=== PATIENT | male | born 1980 | race Caucasian/White ===

== ENCOUNTER 2022-09-25 12:22 | Inpatient (IN) | payer OTHER ==
[~2022-09-25] VITALS: Ht 167.6 cm; Wt 95.8 kg
[2022-09-25 12:58] LABS: BASOPHILS ABSOLUTE AUTO 0.04 K/mm3 (0.00-0.23); BASOPHILS PERCENT AUTO 1 % (0-2); EOSINOPHILS PERCENT AUTO 2 % (0-6); Hematocrit 23.3 % (37.0-53.0); Hemoglobin 7.6 g/dL (13.5-17.5); IMMATURE GRAN ABSOLUTE AUTO 0.02 K/mm3 (0.00-0.10); IMMATURE GRAN PERCENT AUTO 0 % (0-1); LYMPHOCYTES ABSOLUTE AUTO 0.93 K/mm3 (0.84-5.20); LYMPHOCYTES PERCENT AUTO 16 % (21-46); MONOCYTES ABSOLUTE AUTO 0.62 K/mm3 (0.16-1.47); MONOCYTES PERCENT AUTO 11 % (4-13); Mean Corpuscular HGB 27.3 pg (26.0-34.0); Mean Corpuscular HGB Conc 32.6 g/dL (31.5-36.5); Mean Corpuscular Volume 84 fL (80-100); NEUTROPHILS ABSOLUTE AUTO 3.98 K/mm3 (1.96-9.15); NEUTROPHILS PERCENT AUTO 70 % (41-73); Platelet Count 54 K/mm3 (150-400); RDW Coefficient Variation 21.4 % (11.7-14.2); RDW Standard Deviation 65.2 fL (35.1-46.3); Red Blood Cell Count 2.78 M/mm3 (4.30-5.90); White Blood Cell Count 5.69 K/mm3 (4.00-11.30)
[2022-09-25 13:10] LABS: Alanine Aminotransfer (ALT/SGP 52 U/L (12-78); Albumin, Blood 2.5 g/dL (3.4-5.0); Albumin/Globulin Ratio 0.5 (0.8-1.8); Alk Phos 130 U/L (50-136); Anion Gap 1 mmol/L (6-16); Aspartate Aminotrans (AST/SGOT 186 U/L (12-37); Bilirubin, Direct 1.3 mg/dL (0.0-0.3); Bilirubin, Indirect 1.2 mg/dL (0.1-0.7); Bilirubin, Total 2.5 mg/dL (0.1-1.0); Blood Urea Nitrogen 17 mg/dL (8-24); Bun/Creatinine Ratio 21.7 (12.0-20.0); CO2, Blood 26 mmol/L (21-32); Calcium, Blood 8.5 mg/dL (8.5-10.1); Chloride, Blood 109 mmol/L (98-108); Creatinine, Blood 0.78 mg/dL (0.60-1.20); Ethanol (Alcohol), Blood, Med <3 mg/dL; Globulin, Blood 4.8 g/dL (2.2-4.0); Glomerular Filtration Rate 113 (60-); Glucose, Blood 104 mg/dL (70-99); Potassium, Blood 4.3 mmol/L (3.5-5.5); Sodium, Blood 136 mmol/L (136-145); Total Protein, Blood 7.3 g/dL (6.4-8.2)
[2022-09-25 13:17] LABS: Source, Urine Clean Catch
[2022-09-25] MEDS ORDERED: B-1100 M2 PO (13:19)
[2022-09-25] MEDS ORDERED: GABA300 PO (13:19)
[2022-09-25] MEDS ORDERED: FOLI1 PO (13:20)
[2022-09-25] MEDS ORDERED: MULTI-VITAMIN1 EAC2 PO (13:20)
[2022-09-25] MEDS ORDERED: MELATONIN5 M1 PO (13:21)
[2022-09-25] MEDS ORDERED: Ativan1 MG PO (13:23)
[2022-09-25] MEDS ORDERED: Midodrine HCl2.5 MG PO (13:24)
[2022-09-25] MEDS ORDERED: BUSP5 PO (13:25)
[2022-09-25] MEDS ORDERED: PANT40 PO (13:25)
[2022-09-25 13:27] LABS: Bilirubin, Urine Neg (Neg); Blood, Urine 3+ (Neg); Glucose Qualitative, Urine Neg (Neg); Ketones, Urine Neg (Neg); Leukocyte Esterase, Urine 3+ (Neg); Nitrite, Urine Neg (Neg); Protein, Urine 2+ (Neg); Specific Gravity, Urine 1.005 (1.003-1.022); Urobilinogen, Urine 2+ (Normal)
[2022-09-25] MEDS ORDERED: MAGNESIUM OXID500 MG PO (13:27)
[2022-09-25] MEDS ORDERED: ALDACTONE100 MG PO (13:27)
[2022-09-25 13:48] LABS: Appearance, Urine Hazy (Clear); Color, Urine Yellow (P-Yellow)
[2022-09-25 13:50] LABS: Amorphous Light (0-Heavy); Bacteria Many /hpf; Mucus Mod (0-Heavy); Squamous Epithelial Cells Rare /hpf (Few); Transitional Epithelial Cells Rare /hpf (0-Rare); White Blood Cells, Urine TNTC /hpf (0-5)
[2022-09-25] MEDS ORDERED: CITALOPRAM HBR10 MG PO (13:53)
[2022-09-25] MEDS ORDERED: FURO20 PO (13:53)
[2022-09-25 15:28] LABS: International Normalized Ratio 1.42; Prothrombin Time Results 14.6 Sec (9.7-11.5)
[2022-09-25 15:53] LABS: Hematocrit 23.4 % (37.0-53.0); Hemoglobin 7.6 g/dL (13.5-17.5)
--- NOTE | 2022-09-25 17:40 | NUR ---
NURSING PCU DAYSHIFT SUMMARY: Assumed care of pt at approx 1530. Arrived from ER via gurney accompanied by RN. Xfer to unit bed w/staff assist x2. Pt tremulous and weak, restless, visual hallucinations, c/o headache. Anxious, agitated at times punching bed and agressively yelling, current CIWA of 24. Skin is jaundiced with no significant breakdown noted. Tele in place, NSR, hypertensive, no c/o CP/pressure. L/S cta t/o, O2 sat mid to upper 90's on RA, no noted cough. Abd mildly distended, BT+, voiding blood tinged/tea colored urine, c/o buring w/urination. PIV x2, D5 1/2NS infusing at 75mls/hr along w/protonic, sandostatin, thiamine and folic acid as ordered. At approx 1800, pt noted to have increased agression after total of 6mg IV ativan and 50mg librium administered. Code delarosa called, placed in tough cough restraints. PMD notified, xfer to ICU d/o received. Bedside report given to accepting RN, xferred via bed at approx 1810.
--- NOTE | 2022-09-25 19:11 | NUR ---
ASSUMPTION OF CARE PT ARRIVED TO ICU FROM PCU VIA GURNEY, REMAINED IN PCU BED DUE TO PTS AGGRESSIVE BEHAVIOR. 4 POINT LOCKING RESTRAINTS APPLIED DUE TO PTS AGGRESSION TOWARDS STAFF. PT ALERT TO PERSON, NOT FOLLOWING COMMANDS, MUMBLING, HAVING VISUAL AND AUDITORY HALLUCINATIONS c CIWA >30. PRECEDEX GTT INITIATED, TITRATING AT THIS TIME. MEDICATED c 4MG ATIVAN SHORTLY AFTER ARRIVAL TO UNIT, PT CONTINUES TO PULL ON RESTRAINTS. 1:1 SITTER AT BEDSIDE WELL 1:1 RN. REPORT GIVEN TO ONCOMING NURSE.
[2022-09-25 21:38] LABS: Hematocrit 22.6 % (37.0-53.0); Hemoglobin 7.1 g/dL (13.5-17.5)
[2022-09-25 23:35] LABS: Source, Urine Foley catheter
[2022-09-25 23:39] LABS: Appearance, Urine Clear (Clear); Bilirubin, Urine Neg (Neg); Blood, Urine 4+ (Neg); Color, Urine Yellow (P-Yellow); Glucose Qualitative, Urine Neg (Neg); Ketones, Urine Neg (Neg); Leukocyte Esterase, Urine 1+ (Neg); Nitrite, Urine Neg (Neg); Protein, Urine 1+ (Neg); Urobilinogen, Urine 2+ (Normal)
[2022-09-26 00:08] LABS: Bacteria Few /hpf; Squamous Epithelial Cells Few /hpf (Few)
[2022-09-26 05:19] LABS: International Normalized Ratio 1.46
[2022-09-26 05:31] LABS: Albumin, Blood 2.1 g/dL (3.4-5.0); Albumin/Globulin Ratio 0.4 (0.8-1.8); Bilirubin, Total 1.9 mg/dL (0.1-1.0); Bun/Creatinine Ratio 19.4 (12.0-20.0); Calcium, Blood 7.7 mg/dL (8.5-10.1); Creatinine, Blood 0.72 mg/dL (0.60-1.20); Globulin, Blood 4.8 g/dL (2.2-4.0); Magnesium, Blood 1.7 mg/dL (1.6-2.4); Potassium, Blood 4.1 mmol/L (3.5-5.5); Total Protein, Blood 6.9 g/dL (6.4-8.2)
--- NOTE | 2022-09-26 06:39 | NUR ---
SHIFT SUMMERY PT IS SEDATED ON PRECEDEX GTT FOR SEVERE ETOH W/DRAWALS, ATIVAN PRN. HE IS ORIENTED TO NAME ONLY. HE IS JAUNDICE. HE HAS OCTREOTIDE AND PROTONIX GTT INFUSING WELL. HE HAS BEEN COMBATIVE, AGITATED AND VERBALLY ABUSE TO STAFF OVERNIGHT. 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 HE IS ON 2L NC W/OXYGEN SAT 98%.
[2022-09-26 07:32] LABS: Hematocrit 22.3 % (37.0-53.0); Hemoglobin 7.1 g/dL (13.5-17.5)
--- NOTE | 2022-09-26 08:03 | NUR ---
CARE OF PT ASSUMED AT 0700. PT SLEEPING, AWAKENS TO VOICE. CIWA 18. PT ORIENTED ONLY TO SELF. PRECEDEX GTT AT 0.5MCG, PROTONIX AND SANDOSTATIN GTT INFUSING. D5 1/2NS AT 75. PT ABLE TO SAFELY SWALLOW AM MEDS. PT AWAKE AND FOLLOWING COMMANDS. RESTRAINTS REMOVED, STEAM ENGINEER NOTIFIED. PT ON CAMERA. BED ALARM ON. PT APPEARS TO BE ACTIVELY HALLUCINATING, CALM AT THIS TIME, LIBRIUM 100MG GIVEN, PRECEDEX DECREASED TO 0.3MCG.
--- NOTE | 2022-09-26 09:04 | NUR ---
PRECEDEX ON STANDBY FOR BP 84/47 (59).
[2022-09-26 09:32] LABS: Hematocrit 21.8 % (37.0-53.0); Hemoglobin 6.8 g/dL (13.5-17.5)
--- NOTE | 2022-09-26 09:35 | NUR ---
PT WOKE UP, REMAINS VERY CONFUSED BUT CALM AND COOPERATIVE. PT REQUEST I CALL HIS FIANCE BUT CANT REMEMBER HER NAME OR NUMBER. BP IMPROVING.
--- NOTE | 2022-09-26 10:03 | NUR ---
PT BEGAN TO ESCALATE, BECOMING VERY AGITATED. PT CONFUSED, THOUGHT HE WAS IN CARE HOME AND NEEDED TO "BREAK OUT". UNABLE TO RE-ORIENT PT. PT BECAME MORE ANGRY, "WHEN I GET MY F-ING HANDS ON YOU, YOUR GOING TO REGRET IT". PT DID ALLOW ME TO MEDICATE HIM WITH ATIVAN, BUT WAS GROWLING AT ME AND CUSING UNDER HIS BREATH. HE ALSO STATED "IM GOING TO RIP THESE IV'S OUT OF MY ARM". SECURITY CALLED TO ASSIST. TUFF CUFFS PLACED TO WRIST, PT WAS CALM WHILE RESTRAINTS PLACED.
--- NOTE | 2022-09-26 10:31 | NUR ---
PT'S 'S CONTACT INFORMATION OBTAINED FROM [employer], SHE IS LISTED HIS EMERGENCY CONTACT. PT'S CALLED AND UPDATED. THEY RESIDE [facility]. HER NAME IS GISELLA; .
--- NOTE | 2022-09-26 12:37 | NUR ---
DR STONE IN TO SEE PT, FULL UPDATE GIVEN. PT GIVEN ROJAS ALEGRIA.
--- NOTE | 2022-09-26 14:00 | NUR ---
PT WOKE UP FOR ORAL MEDS, ORAL CARE, AND SIPS OF WATER. SHORTLY AFTER CARE PT BECAME SEVERELY AGITATED, THRASHING IN BED, PULLING ON RESTRAINTS, USING PROFANITY, AND MAKING THREATS. PT TO RECEIVE ONE UNIT PRBC. ATIVAN 4MG GIVEN, PT CONTINUED TO THRASH, PULLING ON RESTRAINTS. PRECEDEX INCREASED TO 0.5MCG.
[2022-09-26 14:08] LABS: Hematocrit 21.3 % (37.0-53.0); Hemoglobin 6.7 g/dL (13.5-17.5)
--- NOTE | 2022-09-26 18:19 | NUR ---
PT TOLERTATED PBRC'S W/O ANY ADVERSE REACTIONS. PRECEDEX AT 0.5MCG. PT REQUIRED ATIVAN 4MG X 2 THIS SHIFT FOR CIWA >20. SANDOSTATIN AND PROTONIX GTT INFUSING. NO SIGNS OF ACTIVE BLEEDING NOTED, LABS ORDERED FOR AM. PT'S UPDATED AGAIN THIS EVENING. PT SLEEPING AT THIS TIME.
[2022-09-27 04:23] LABS: Hematocrit 24.8 % (37.0-53.0); Hemoglobin 7.9 g/dL (13.5-17.5); Mean Corpuscular HGB 27.4 pg (26.0-34.0); Mean Corpuscular HGB Conc 31.9 g/dL (31.5-36.5); Mean Corpuscular Volume 86 fL (80-100); Mean Platelet Volume 10.9 fL (9.1-12.4); Platelet Count 71 K/mm3 (150-400); RDW Coefficient Variation 21.2 % (11.7-14.2); RDW Standard Deviation 65.7 fL (35.1-46.3); Red Blood Cell Count 2.88 M/mm3 (4.30-5.90); White Blood Cell Count 4.67 K/mm3 (4.00-11.30)
--- NOTE | 2022-09-27 07:43 | NUR ---
CARE OF PT ASSUMED AT 0700. PT SLEEPING, AWAKENS TO VOICE. SPEECH IS GARBLED, SOME OF IT IS INCOMPREHENSIBLE. PRECEDEX AT 1.2MCG FOR ACUTE ETOH W/D. PT YELLS OUT PROFANITIES AT TIMES, GROWLS, PULLS ON RESTRAINTS. PT ORIENTED TO SELF, STATES YEARS IS 7, THEN 9. DOES NOT KNOW WHERE HE IS. WHEN SPEAKING TO PT HE APPEARS ANGRY. PT CALLS OUT FOR "TEX". PRECEDEX DECREASED TO 0.3MCG. WILL OFFER PT WATER AND AM MEDS WHEN MORE AWAKE. SCD'S ON. PROTONIX AND SANDOSTATIN GTT INFUSING. D5 1/2NS AT 75. H&H STABLE, NO SIGNS OF ACTIVE BLEEDING. WILL ASK ABOUT CHECKING CHEM W PHOS/MG THIS AM.
--- NOTE | 2022-09-27 08:27 | NUR ---
PT HAVING SOME MOMENTS OF CLARITY. STATES HE IS HAVING HALLUCINATIONS, C/O CHRONIC BACK PAIN. REQUEST "VALIUM AND PERCOCET". PT CALLING OUT TO PEOPLE WHO ARE NOT HERE. DR STONE CALLED AND UPDATED. PT BOOSTED IN BED. ABLE TO TAKE PO MEDS AND SIPS OF WATER SAFELY.
--- NOTE | 2022-09-27 09:58 | NUR ---
PT INCONTINENT OF X-LARGE LIQUID YELLOW BM. PT CLEANED, GIVEN BED BATH, LINENS CHANGED. 3 ASSIST W BATH D/T CONFUSION. PRECEDEX PLACED ON SB D/T HYPOTENSION, MAPS >65. PT REMAINS CONFUSED, AWAKENS PERIODICALLY. AT TIMES HE IS CALM AND ANGRY, AT OTHER TIMES HE IS AGITATED AND ANGRY.
--- NOTE | 2022-09-27 10:45 | NUR ---
DR STONE IN TO SEE PT. UPDATE GIVEN. AWAITING LAB RESULTS. PT HAS HAD SEVERAL MORE LIQUID BM'S.
[2022-09-27 11:10] LABS: HBSAG SCREEN Negative (Negative); HCV ANTIBODY Non Reactive (Non Reactive); HEP B CORE AB, TOT Negative (Negative)
--- NOTE | 2022-09-27 12:36 | NUR ---
PT SOMNOLENT, AWAKENS PARIODICALLY YELLING OUT AND WITH CARE. PT HAS NOT RECEIVED ATIVAN THIS SHIFT AND PRECEDEX REMAINS ON STANDBY. WHEN PT AWAKENS HE IS CONFUSED, MOST OF HIS CONVERSATION IS INCOMPREHENSIBLE OTHER THAN A FEW PROFANITIES. PT HAS HAD 4 X-LARGE LIQUID YELLOW BM'S. RECTAL TUBE PLACED; PT SAMMI WELL. LAB CALLED REGARDING LAB RESULTS, RP RE-SENT PER LAB. ABLE TO WAKE HIM ENOUGH FOR HIM TO TAKE HIS LACTULOSE. PT QUICKLY FALLS BACK TO SLEEP AFTER SIPS OF WATER W [employer]
[2022-09-27 12:38] LABS: Albumin, Blood 2.3 g/dL (3.4-5.0); Anion Gap 7 mmol/L (6-16); Blood Urea Nitrogen 16 mg/dL (8-24); Bun/Creatinine Ratio 10.9 (12.0-20.0); CO2, Blood 24 mmol/L (21-32); Calcium, Blood 8.1 mg/dL (8.5-10.1); Chloride, Blood 108 mmol/L (98-108); Creatinine, Blood 1.47 mg/dL (0.60-1.20); Glomerular Filtration Rate 60 (60-); Glucose, Blood 103 mg/dL (70-99); Phosphorus, Blood 3.4 mg/dL (2.5-4.9); Potassium, Blood 4.2 mmol/L (3.5-5.5); Sodium, Blood 139 mmol/L (136-145)
--- NOTE | 2022-09-27 14:43 | NUR ---
PT WOKE UP CONFUSED, AGITATED, CIWA >20. 2ND BEDBATH GIVEN FOR INCONTINENCE OF STOOL. LINENS CHANGED. PT MEDICATED W ATIVAN 2MG, PRECEDEX RESTARTED AT 0.2MCG. PT MAKING FIST W VERBAL THREATS. PT MORE CALM NOW, MODERATLY RESTLESS IN BED.
--- NOTE | 2022-09-27 15:50 | NUR ---
DURING BED CHANGE FOR INCONTINENCE OF STOOL PT BECAME SEVERELY AGITATED, PUNCHING W CLOSED FIST TOWARDS STAFF AND YELLING; INCOMPREHENSIBLE OTHER THAN SOME PROFANITY. PT THRASHING IN BED SO HARD THAT BED MOVED W LOCKS ON. ADDITIONAL STAFF AT BEDSIDE TO HELP. ATIVAN 4MG GIVEN DURING INITAL AGITATION, FOLLOWED BY AN ADDITIONAL 4MG WHEN PT TRASHING SO HARD THE BED MOVED. PRECEDEX INCREASED TO 0.4MCG. PT MORE CALM NOW BUT STILL RESTLESS IN BED.
--- NOTE | 2022-09-27 19:00 | NUR ---
ASSUMED CARE ASSUMED CARE OF PATIENT. SEDATED WITH PRECEDEX AT 0.4MCG/KG/HR. ROUSES TO STIMULI, AGITATED WHEN AWAKE. CONFUSED CONVERSATION. ORIENTED TO SELF ONLY AT THIS TIME. REMAINS IN UPPER BUE TATs. SANDOSTATIN AND PROTONIX INFUSING PER ORDER. D51/2NS INFUSING AT 75MLs/HR. MILLER PATENT AND DRAINING TO GRAVITY. RECTAL TUBE PATENT- LIQUID BROWN STOOL. MONITOR SHOWS NSR, RATE 70s. BP STABLE. SEE SHIFT ASSESSMENT FOR FULL ASSESSMENT.
[2022-09-28 03:33] LABS: Hematocrit 25.3 % (37.0-53.0); Hemoglobin 8.2 g/dL (13.5-17.5); Mean Corpuscular HGB 27.9 pg (26.0-34.0); Mean Corpuscular HGB Conc 32.4 g/dL (31.5-36.5); Mean Corpuscular Volume 86 fL (80-100); Platelet Count 77 K/mm3 (150-400); RDW Coefficient Variation 21.5 % (11.7-14.2); RDW Standard Deviation 67.5 fL (35.1-46.3); Red Blood Cell Count 2.94 M/mm3 (4.30-5.90); White Blood Cell Count 4.96 K/mm3 (4.00-11.30)
[2022-09-28 04:25] LABS: Albumin, Blood 2.3 g/dL (3.4-5.0); Anion Gap 8 mmol/L (6-16); Blood Urea Nitrogen 12 mg/dL (8-24); Bun/Creatinine Ratio 14.3 (12.0-20.0); CO2, Blood 20 mmol/L (21-32); Calcium, Blood 7.6 mg/dL (8.5-10.1); Chloride, Blood 114 mmol/L (98-108); Creatinine, Blood 0.84 mg/dL (0.60-1.20); Glomerular Filtration Rate 111 (60-); Glucose, Blood 136 mg/dL (70-99); Phosphorus, Blood 3.1 mg/dL (2.5-4.9); Potassium, Blood 3.6 mmol/L (3.5-5.5); Sodium, Blood 142 mmol/L (136-145)
--- NOTE | 2022-09-28 06:21 | NUR ---
SHIFT SUMMARY NO ACUTE CHANGES. CIWA 16-20. PRECEDEX INFUSING BETWEEN 0.4-0.5MCG/KG/HR- NOW AT 0.5MCG/KG/HR. MEDICATED WITH ATIVAN 2MG IV X 1 AND ATIVAN 4MG IV X 1 DOSE FOR AGITATION. PT ROUSES TO STIMULI. SLOW VERBAL RESPONSE AND OCCASIONAL AGGRESSIVE SPEECH. FOLLOWS SOME COMMANDS. ORIENTED TO SELF ONLY. PUSHED OUT RECTAL TUBE DURING NOC AND NOW STOOL COMSISTENCE SEEMS TOO THICK. INCONTINENT OF LARGE AMOUNT OF LOOSE STOOL. NPO EXCEPT MEDS- PT SWALLOWS WITHOUT DIFFICULTY WHEN ALERT. REPOSITIONS SELF IN BED. REMAINS IN BUE TATs, D/T STRENGTH. DOES PULL ON RESTRAINTS WHEN AGITATED. PROTONIX AND SANDOSTATIN CONTINUE PER ORDER. D51/2NS INFUSING AT 75MLs/HR PER ORDER. WILL REPORT TO ONCOMING RN WHEN AVAILABLE.
--- NOTE | 2022-09-28 09:30 | NUR ---
INITIAL ASSESSMENT PATIENT SLEEPING UPON ENTERING ROOM. PATIENT ORIENTED TO ALL QUESTIONS EXCEPT TOWN AND MONTH. CIWA SCORE OF 9. PATIENT CALM AND COOPERATIVE AT THIS TIME. PATIENT CAN BE UNPREDICTABLE AND AGGRESSIVE AT TIMES PER REPORT. PATIENT AFEBRILE. PATIENT ON 2 L NC TO KEEP SATS 90% AND GREATER. EXPIRATORY WHEEZES NOTED IN UPPER LUNG LOBES. PATIENT IN SR, HR IN THE 60S. SBP 1-TEENS TO 120S. SCDS IN PLACE. PATIENT RECEIVING LACTULOSE. MODERATE ABD DISTENTION NOTED. MILLER DRAINING YELLOW COLORED URINE. SKIN JAUNDICED. SCATTERED SCABS AND BRUISES. PRECEDEX INFUSING AT 0.2 MCG/ KG/ HOUR, PROTONIX AT 10 MLS/ HOUR, OCREOTIDE AT 25 MLS/ HOUR, D5W1/2 NS INFUSING AT 75 MLS/ HOUR. BED LOW, CALL LIGHT IN REACH. WILL CONTINUE TO MONITOR PATIENT FREQUENTLY THROUGHOUT SHIFT.
--- NOTE | 2022-09-28 10:00 | NUR ---
DR. STONE UPDATED ON PATIENT STATUS. INFORMED THAT AMMONIA HAS INCREASED FROM 64 TO 86. NO ORDERS RECEIVED AT THIS TIME.
--- NOTE | 2022-09-28 13:00 | NUR ---
PATIENT AFEBRILE. HR IN THE 60S. SBP 90S TO LOW 100S. PRECEDEX DECREASED TO 0.1 MCG/ KG/ HOUR. CIWA SCORE OF 7. PATIENT REMAINS MOSTLY SLEEPING AND CALM AND COOPERATIVE WHEN AWAKE. NO OTHER ACUTE CHANGES TO NOTE ON AT THIS TIME. WILL CONTINUE TO MONITOR.
--- NOTE | 2022-09-28 16:00 | NUR ---
PATIENT AFEBRILE. HR IN THE 60S. SBP IN THE 1-TEENS. CIWA OF 8. PRECEDEX AT 0.1 MCG/ KG/ HOUR. PATIENT REMAINS CALM AND COOPERATIVE. NO OTHER ACUTE CHANGES TO NOTE ON AT THIS TIME. WILL CONTINUE TO MONITOR.
--- NOTE | 2022-09-28 18:39 | NUR ---
SHIFT SUMMARY PATIENT SLEEPING MOST OF BEGINNING OF SHIFT. PRECEDEX DECREASED FROM 0.5 TO 0.1 MCG/ KG/ HOUR. PATIENT REMAINED MOSTLY ORIENTED AND PERKED UP MORE AT END OF SHIFT. CIWAS RANGED FROM 7 TO 9. PATIENT REMAINED CALM AND COOPERATIVE AND WAS TAKEN OUT OF RESTRAINTS THIS SHIFT. PATIENT HAS REMAINED AFEBRILE. PATIENT HAS BEEN GIVEN FENTANYL TWICE THIS SHIFT FOR COMPLAINTS OF R SHOULDER AND ABD PAIN. PATIENT REMAINED SATTING 90% AND GREATER ON RA. PATIENT REMAINED IN SR, HR 60S TO 90S. SBP 90S TO 130S. PATIENT HAD ONE LARGE, BROWN, LIQUID BM THIS SHIFT. PATIENT CONTINUES TO RECEIVE SCHEDULED LACTULOSE. PATIENT STARTED ON CLEAR DIET THIS SHIFT. PATIENT DENIES NAUSEA BUT DOES NOT HAVE MUCH OF AN APPETITE AT THIS TIME. 700 MLS OF YELLOW COLORED URINE OUT FROM MILLER. NO CHANGES TO SKIN NOTED. PATIENT SHIFTED OWN HIPS FREQUENTLY IN BED. PROTONIX AT 10 MLS/ HOUR, OCREOTIDE AT 25 MLS/ HOUR, D5W1/2NS AT 75 MLS/ HOUR. COMPLETE BED BATH PERFORMED THIS SHIFT. PATIENT'S AND MOTHER CALLED TO CHECK ON HIM. NO COMPLAINTS AT THIS TIME. BED LOW, CALL LIGHT IN REACH. REPORT WILL BE GIVEN TO ASSUMING DIRECTOR OF ACQUISITION MARKETING NURSE SHORTLY.
--- NOTE | 2022-09-29 05:37 | NUR ---
END OF SHIFT SUMMARY PT AWAKE MOST OF THE NIGHT WITH HALLUCINATIONS OF SPIDERS AND THINKING HE DROPPED HIS PILLS IN THE BED. A/O X2 RESP- 2LPM NC WITH SPO2 >93%. LUNG SOUNDS CLEAR BILATERALLY THROUGHOUT. NON PRODUCTIVE COUGH NOTED. CARDIAC- SR WITH SBP 120'S-130'S. HR 80-90'S. GI, - MILLER DRAINING TO GRAVITY WITH DARK YELLOW URINE. PT TAKES PILLS WHOLE WITH WATER WITHOUT DIFFICULTY. PRECEDEX 0.1 MCG/KG/MIN TKO X2 @ 10 MLS/HR D5W 1/2NS AT 75 MLS/HR. LIBRIUM AND ATIVAN GIVEN THIS SHIFT. PT REQUESTS PAIN MEDICATIONS EVERY [address] BRAXTON CAME IN THE MIDDLE OF SHIFT AND ORDERED MEDICATIONS TO BE PO AND MATCH HOME MEDICATIONS. LACTULOSE TO BE HELD IF DIARRHEA STOOLS. TWO DOSES OF LACTULOSE HELD DUE TO MULTIPLE DIARRHEA EVENTS. WILL CONTINUE TO MONITOR PT UNTIL AM RN IS GIVEN REPORT.
--- NOTE | 2022-09-29 17:33 | NUR ---
SHIFT SUMMARY PT STATUS CHANGED TO PCU THIS SHIFT. CIWA 5-8. PRECEDEX PLACED ON STANDBY THIS AM, LIBRUIM PO GIVEN. PT C/O GENERALIZED PAIN, RIGHT SHOULDER AND LUQ WORSE, MEDICATED c OXYCODONE. A&OX 3. FOLLOWS COMMANDS. COOPERATIVE c CARE. ONE PERSON ASSIST TO CHAIR, TOLERATED WELL. MILLER REMOVED. ONE LARGE LIQUID BM THIS SHIFT, HELD LACTULOSE PER DR BRAXTON, REQUESTING STOOL BE SOFT BUT NOT LIQUID OR FORMED. ADVANCED DIET, TOLERATED FULL LIQUID. WILL CONTINUE TO MONITOR UNTIL REPORT TO ONCOMING NURSE.
--- NOTE | 2022-09-30 00:13 | NUR ---
ASSUMED CARE OF PT AT 1900 PT SLEEPING IN BED. CALL LIGHT WITHIN REACH, BED IN LOW POSITION. VITALS WNL AT THIS TIME. PT ON RA WITH SPO2 >93%. ANGELA JUNIOR'Justo DURING DAYSHFIT AT APPROX 1500. NO URINE OUT SINCE THEN. WILL CONTINUE TO MONITOR. PT ABLE TO MAKE NEEDS KNOWN. SEE FULL ASSESSMENT FOR FURTHER DETAILS.
--- NOTE | 2022-09-30 05:47 | NUR ---
END OF SHIFT SUMMARY PT SLEPT MOST OF THE NIGHT WITH INTERMITENT WAKENING FOR PAIN MEDICATIONS AND SELF REPOSITIONING. PT HAS BEEN USING INCENTIVE SPIROMETER THROUGHOUT THE NIGHT WELL. A/O X3. DEPTH PERCEPTION IS SHADY AT THIS POINT, HOWEVER PT HAS NOT HAD HALUCINATIONS THIS SHIFT. RESP- PT HAD ONE NEBULIZER TREATMENT EARLY IN THE NIGHT D/T SOB AND WHEEZING. SPO2 >93% ON RA. LUNG SOUNDS CLEAR BILATERALLY THROUGHOUT WITH INTERMITENT WHEEZE BEFORE CLEARING SECRETIONS BY COUGHING HARD. CARDIAC- SR WITH SBP 120'S. WHEN COUGHING HR RAISES TO 120'S-130'S. CAMDEN BEAR DC'Justo ON DAYSHIFT YESTERDAY, PT HAS HAD SMALL URINE OUTPUT OF 250 MLS. PT HAS ALSO NOT HAD ANY INTAKE ALL NIGHT EXCEPT TO TAKE MEDICATIONS. PT WAS EDUCATED ON THE IMPORTANCE OF DRINKING FLUIDS THROUGHOUT THE DAY TO STAY HYDRATED. NO BM THIS SHIFT. INTEG- NO CHANGES THIS SHIFT. TKO AT 10 MLS/HR WILL CONTINUE TO MONITOR UNTIL REPORT GIVEN TO DAYSHIFT RN.
[2022-09-30 06:45] LABS: Hematocrit 29.3 % (37.0-53.0); Hemoglobin 9.1 g/dL (13.5-17.5); Mean Corpuscular HGB 27.7 pg (26.0-34.0); Mean Corpuscular HGB Conc 31.1 g/dL (31.5-36.5); Mean Corpuscular Volume 89 fL (80-100); Mean Platelet Volume 10.4 fL (9.1-12.4); Platelet Count 143 K/mm3 (150-400); Red Blood Cell Count 3.29 M/mm3 (4.30-5.90); White Blood Cell Count 10.61 K/mm3 (4.00-11.30)
[2022-09-30 07:07] LABS: Magnesium, Blood 1.6 mg/dL (1.6-2.4); Percent Saturation 7.7 % (20.0-50.0)
[2022-09-30 07:25] LABS: Albumin, Blood 2.5 g/dL (3.4-5.0); Albumin/Globulin Ratio 0.5 (0.8-1.8); Bilirubin, Total 1.5 mg/dL (0.1-1.0); Bun/Creatinine Ratio 8.2 (12.0-20.0); Creatinine, Blood 0.85 mg/dL (0.60-1.20); Globulin, Blood 4.7 g/dL (2.2-4.0); Phosphorus, Blood 3.3 mg/dL (2.5-4.9); Potassium, Blood 3.3 mmol/L (3.5-5.5); Total Protein, Blood 7.2 g/dL (6.4-8.2)
--- NOTE | 2022-09-30 09:39 | NUR ---
SHIFT ASSESSMENT ASSUMED CARE OF PT @ 0700. PT INTIALLY RESTING COMFORTABLY, WAKES EASILY TO VERBAL STIMULI. SLUGGISH TO RESPOND BUT ANSWERING QUESTIONS APPROPRIATELY. BREAKFAST TRAY PROVIDED, PT TOLERATING LIQUID DIET WELL, WILL ADVANCE DIET TOTDAY. PT DENIES N/V, DOES C/O MODERATE CHRONIC R SHOULDER PAIN. CIWA SCORE OF 3, DID NOT MEDICATE THIS SHIFT PT QUITE DROWSY. WILL GET PT UP WALKING IF POSSIBLE THIS MORNING.
--- NOTE | 2022-09-30 17:30 | NUR ---
ASSUMPTION OF CARE: Patient arrived to PCU 2 via WC and was able to ambulate to the bathroom with a FWW and a gait belt. Patient was able to make it back to the bed. Bed alarm on for safety. Call light in reach, will continue to monitor.
[2022-10-01 05:46] LABS: Hemoglobin 8.7 g/dL (13.5-17.5); Mean Corpuscular HGB 27.2 pg (26.0-34.0); Mean Corpuscular HGB Conc 31.1 g/dL (31.5-36.5); Mean Corpuscular Volume 88 fL (80-100); Platelet Count 139 K/mm3 (150-400); RDW Standard Deviation 70.1 fL (35.1-46.3); White Blood Cell Count 7.83 K/mm3 (4.00-11.30)
--- NOTE | 2022-10-01 05:47 | NUR ---
SHIFT SUMMARY SOMNOLENT T/O SHIFT, ORIENTED TO PERSON, PLACE, AND SITUATION. IMPULSIVE AT TIMES, BED ALARM ON FOR SAFETY. 1P ASSIST TO BSC WITH GB AND FWW. SEVERAL LOOSE BM'S AFTER GIVING LACTULOSE. CIWA <5. TELE ST 100-120, DENIES CHEST PAIN/PRESSURE. SPO2 >92% ON RA. VSS, NO ACUTE CHANGES A
[2022-10-01 06:11] LABS: Albumin, Blood 2.6 g/dL (3.4-5.0); Albumin/Globulin Ratio 0.6 (0.8-1.8); Bilirubin, Total 1.6 mg/dL (0.1-1.0); Calcium, Blood 8.2 mg/dL (8.5-10.1); Creatinine, Blood 0.85 mg/dL (0.60-1.20); Globulin, Blood 4.7 g/dL (2.2-4.0); Potassium, Blood 3.3 mmol/L (3.5-5.5); Total Protein, Blood 7.3 g/dL (6.4-8.2)
--- NOTE | 2022-10-01 08:22 | NUR ---
AM NOTE: PATIENT ALERT AND ORIENTED X3. FORGETFULL AND SLOW TO RESPOND WITH SPEECH AND MOVEMENTS. DENIES N/T. PERRLA. 2 PERSON ASSIST TO BSC. BED ALARM IN PLACE. USING FWW AND GAIT BELT FOR TRANSFERS. VERY SLOW TO MOVE AND SHUFFLING FEET. COMPLAINS OF RIGHT SHOULDER PAIN THIS AM, RELATED TO PREVIOUS INJURY. LIDOCAINE PATCH TO R CM. ON ROOM AIR SATING 93%. DENIES SOB. LUNGS SOUNDING WHEEZY WITH SOME COARSENESS. TELE SHOWING ST WITH HR 110'S. BP STABLE. DENIES CHEST PAIN/PRESSURE/PALPITATIONS. NO EDEMA NOTED. DENIES ABDOMINAL PAIN/NAUSEA. UP TO BSC TO VOID THIS AM, NO BM. LACTULOSE GIVE PER EMAR. TOLERATING FULL LIQUID DIET THIS AM. DENIES MOST AM CARES. CALL LIGHT IN REACH, BED ALARM IN PLACE.
--- NOTE | 2022-10-01 11:56 | NUR ---
MOM APOLONIA CALLED AND THIS RN PROVIDED UPDATE. NO ACUTE CHANGES. OT IN TO WORK WITH PATIENT. SITTING UP IN CHAIR FOR LUNCH AT THIS TIME. PLAN FOR BED BATH POST LUNCH. CHAIR ALARM IN PLACE.
--- NOTE | 2022-10-01 18:10 | NUR ---
SHIFT SUMMARY: NOT ACUTE CHANGES THROUGHOUT SHIFT. PATIENT CONTINUES TO BE DROWSY AND LETHARGIC. PT/OT. VITAL SIGNS STABLE. REMAINS ON ROOM AIR. TELE CONTINUES TO SHOW SR/ST. COMPLAINS OF RIGHT SHOULDER PAIN. MEDICATED PER EMAR. LACTULOSE HELD THIS AFTERNOON AND EVENING DUE TO 3 LIQUID BOWL MOVEMENTS THIS AFTERNOON. BED ALARM AND CHAIR ALARM IN PLACE. UP TO CHAIR FOR MEALS. ADVANCED TO REGULAR DIET AND TOLERATING WELL. WILL CONTINUE TO MONITOR AND REPORT OFF TO ONCOMING RN.
--- NOTE | 2022-10-01 19:30 | NUR ---
PATIENT SLEEPING AWAKENS TO SLIGHT VERBAL STIMULI. A&O X3 AT FIRST THINKING THAT HE WAS IN [place], BUT CORRECTING SELF EASILY. CONTINUES TO C/O RIGHT SHOULDER PAIN. REPOSITIONING SELF IN BED FOR COMFORT. NO OTHER COMPLAINTS AT THIS TIME.
[2022-10-02 04:51] LABS: Hematocrit 26.7 % (37.0-53.0); Hemoglobin 8.5 g/dL (13.5-17.5); Mean Corpuscular HGB 27.6 pg (26.0-34.0); Mean Corpuscular HGB Conc 31.8 g/dL (31.5-36.5); Mean Corpuscular Volume 87 fL (80-100); Mean Platelet Volume 9.5 fL (9.1-12.4); Platelet Count 136 K/mm3 (150-400); RDW Coefficient Variation 21.7 % (11.7-14.2); RDW Standard Deviation 68.6 fL (35.1-46.3); Red Blood Cell Count 3.08 M/mm3 (4.30-5.90); White Blood Cell Count 6.08 K/mm3 (4.00-11.30)
[2022-10-02 05:14] LABS: Albumin, Blood 2.2 g/dL (3.4-5.0); Albumin/Globulin Ratio 0.5 (0.8-1.8); Bilirubin, Total 1.3 mg/dL (0.1-1.0); Bun/Creatinine Ratio 8.4 (12.0-20.0); Calcium, Blood 8.1 mg/dL (8.5-10.1); Creatinine, Blood 0.59 mg/dL (0.60-1.20); Globulin, Blood 4.2 g/dL (2.2-4.0); Potassium, Blood 3.3 mmol/L (3.5-5.5); Total Protein, Blood 6.4 g/dL (6.4-8.2)
--- NOTE | 2022-10-02 06:47 | NUR ---
SUMMARY PATIENT SLEEPING WHEN UNDISTURBED. AWAKENS EASILY TO VERBAL STIMULI. C/O PAIN TO RIGHT SHOULDER THAT APPEARS TO BE GETTING MORE SEVERE NIGHT PROGRESSED, DESPITE BEING MEDICATED WITH OXYCODONE Q6HR. UP TO SIDE OF BED WITH ASSISTANCE DUE TO GENERALIZED WEAKNESS, AND SHOULDER PAIN. CIWA 1-2 T/O NIGHT.
--- NOTE | 2022-10-02 09:41 | NUR ---
Pt is somewhat lethargic now, sitting on side of bed, moving slowly and often closing his eyes during activity. He says that he he needs to sleep. Earlier he was more awake while eating breakfast. His movements were slow and weak, but he was more alert. Demonstrated use of the flutter valve while sitting on side of bed at this time.
--- NOTE | 2022-10-02 10:25 | NUR ---
Pt was instructed to use the flutter valve, and he demonstrated its use. He is more lethargic than he was at breakfast time. Dr. Woods here to see the patient. He was complaining of right shoulder pain, and the doctor examined him for that.
--- NOTE | 2022-10-02 11:03 | NUR ---
Telemetry removed, pt given oral medications at this time. Dr. Woods said she would order a shoulder xray.
--- NOTE | 2022-10-02 12:18 | NUR ---
mid day dose of gabapentin held due to drowsiness/mild lethargy
--- NOTE | 2022-10-02 13:20 | NUR ---
Pt is sleepy after having Xray of shoulders. Awakens easily, states that his pain is reduced to 5/10 in the shoulder and left arm.
--- NOTE | 2022-10-02 14:21 | NUR ---
Pt is still apparently sleeping. Respirations even and unlabored. Appears comfortable. Bed alarm on.
--- NOTE | 2022-10-02 14:39 | NUR ---
Assisted to stand to void.
--- NOTE | 2022-10-02 14:53 | NUR ---
results of shoulder Xray are noted in the record.
--- NOTE | 2022-10-02 15:34 | NUR ---
Telephone report given to Susana nurse receiving the pt to room 344.
--- NOTE | 2022-10-02 16:10 | NUR ---
TRANSFER PT TRANSFERRED FROM PCU 2 AT 1555. A&OX3, COOPERATIVE, SLOW TO RESPOND. TRANSFERRED FROM WHEELCHAIR TO BED SBA. C/O 02/18 PAIN TO R SHOULDER, "FEELS LIKE SOMEONE IS STABBING ME." IV'S PATENT, MARTÍNEZ POWERGLIDE DOES NOT DRAW. PATIENT CURRENTLY RESTING COMFORTABLY IN BED WITH CALL NIGHT IN REACH.
[2022-10-02] MEDS ORDERED: ENULOSE10 GM/156 PO (20:18)
[2022-10-02] MEDS ORDERED: HYDROXYZINE PAM25 MG PO (20:20)
[2022-10-02] MEDS ORDERED: OXYC10TA19 PO (20:21)
[2022-10-02] MEDS ORDERED: Ventolin/Prove6.7 GM INH (20:21)
[2022-10-02] MEDS ORDERED: NICO21TP TOP (20:22)
[2022-10-02] MEDS ORDERED: NICORETTE4 M1 BC (20:23)
[2022-10-03 04:55] LABS: Hematocrit 25.5 % (37.0-53.0); Hemoglobin 8.2 g/dL (13.5-17.5); Mean Corpuscular HGB 27.4 pg (26.0-34.0); Mean Corpuscular HGB Conc 32.2 g/dL (31.5-36.5); Mean Corpuscular Volume 85 fL (80-100); Mean Platelet Volume 10.6 fL (9.1-12.4); Platelet Count 164 K/mm3 (150-400); RDW Standard Deviation 68.2 fL (35.1-46.3); Red Blood Cell Count 2.99 M/mm3 (4.30-5.90); White Blood Cell Count 6.69 K/mm3 (4.00-11.30)
[2022-10-03 05:26] LABS: Albumin, Blood 2.2 g/dL (3.4-5.0); Albumin/Globulin Ratio 0.5 (0.8-1.8); Bilirubin, Total 1.2 mg/dL (0.1-1.0); Bun/Creatinine Ratio 9.6 (12.0-20.0); Calcium, Blood 8.2 mg/dL (8.5-10.1); Creatinine, Blood 0.62 mg/dL (0.60-1.20); Globulin, Blood 4.4 g/dL (2.2-4.0); Potassium, Blood 3.4 mmol/L (3.5-5.5); Total Protein, Blood 6.6 g/dL (6.4-8.2)
--- NOTE | 2022-10-03 05:43 | NUR ---
FREQUENT REQUESTS FOR PAIN MEDS, R SHOULDER PAIN. Q6 OXY 5MG GIVEN Q6. UNSTEADY GAIT, AOX3, AT TIMES FORGETS TO USE CALL LIGHT. BED ALARM ON. EGD PENDING LOC IMPROVEMENT. VSS ON RA. PLEASANT, COOPERATIVE. LAST BM 10/02.
--- NOTE | 2022-10-03 13:59 | NUR ---
PT HAS BECOME MORE ALERT- PT IS MORE AWAKE AND A BIT MORE INTERACTIVE, HE SEEMS TO BE HAVING AUDITORY AND VISUAL HALLUCINATIONS (HE THOUGHT HIS GIRLFRIEND WAS HERE VISITING, THEN SHE SUDDENLY VANISHED). PT BECAME A LITTLE AGGITATED WITH STAFF AND ACTUALLY RAISED HIS FIST AND SHOOK IT AT THE BIOPSYCHOLOGIST. PT WAS ABLE OT BE REDIRECTED. HE SEEMS TO BE A LITTLE MORE CONFRONTATIONAL IN HIS SPEECH, LIKE HE IS TRYING TO GET UPSET OVER WHAT STAFF ARE SAYING TO HIM. FREQUENT REDIRECTION SEEMS TO BE HELPING. PT WAS ASKING FOR AN ALCOHOLIC DRINK.
--- NOTE | 2022-10-03 19:29 | NUR ---
SHIFT SUMMARY- PT HAS BEEN CONFUSED OFF AND ON T/O THE DAY HALLUCINATING THAT HE HAD VISITORS, AT ONE POINT HE WAS UPSET BECAUSE HE KNEW HIS GIRLFRIEND WAS CHEATING ON HIM. THEN TOWARDS THE END OF THE SHIFT HE BECAME UPSET AND READY TO LEAVE, HE WAS CONFUSED NOT KNOWING WHERE HE IS, (HE THOUGHT HE WAS STILL AT REHAB) CALLED DR HARRELL AND RECIEVED AN ORDER FOR 10MG ZYPREXA. PT WAS UNSAFE AND UNABLE TO REDIRECT AT THE TIME. PT SPOUSE CALLED THE HOSPITAL TRYING TO DETERMINE IF THE PT WAS ACTUALLY BEING DISCHARGED. THE PT HAD CALLED AND ASKED HER TO COME AND GET HIM. SHE IS AWARE THE PT IS NOT BEING DISCHARGED TONIGHT. THE PT IS CURRENTLY IN BED SLEEPING. BEDSIDE REPORT COMPLETED WITH NIGHT RN. PT ANSWERED A PHONE CALL AT THE TIME OF REPORT, WITH STAFF ASSISTANCE. THE PT ATTEMPTED TO DIAL A PHONE NUMBER AFTER THE CALL, AND HE BECAME AGGITATED AND TRIED TO BREAK THE PHONE. HE STOPPED THIS BEHAVIOR WHEN STAFF TOLD HIM NOT TO DO THAT. SO SOME MILD AGRESSION BUT REDIRECTABLE. NIGHT RN IS AWARE.
--- NOTE | 2022-10-04 06:46 | NUR ---
END OF SHIFT NURSING REPORT - PM Admitted from [facility] for confusion and hepatic encephalopathy. He is AOX3 during shift, understands reason and purpose for admission. Episodes of impulksive behavior and exiting bed without calling for assistance triggering bed alarm multiple times. Flat mood, without any anger outbust during shift, Medicated x1 with PRN for 7/10 pain to right-shoulder.
--- NOTE | 2022-10-04 16:49 | NUR ---
SHIFT SUMMARY- PT HAS SLEPT THROUGH MOST OF THE SHIFT. WAKING WHEN STAFF ENCOURAGED HIM TO GET UP AND SIT AT THE EOB TO EAT HIS MEALS. THE PT IS CURRENTLY IN THE BATHROOM FOR THE FIRST TIME TODAY. STAFF HAVE TRIED TO ENCOURAGE HIM TO WAKE UP AND GO USE THE RESTROOM, THE PT HAS DECLINED TO USE THE BATHROOM AT ALL THIS SHIFT. WHEN THE PT WOKE TO TAKE HIS THIRD DOSE OF LACTULOSE AND THE PT BECAME UPSET STATING THAT THE STAFF WERE TRYING TO MAKE HIM "CRAP HIS PANTS." THE PT HAS HAD NO OTHER BM'S TODAY. THE PT IS MORE DISORIENTED THIS EVENING, HE HAS A LOW GRADE FEVER. CALLED DR HARRELL AND RECIEVED AN ORDER FOR TYLENOL. PT RECIEVED THAT DOSE THIS EVENING. PT IS CURRENTLY BACK IN BED, CALL LIGHT IN REACH.
--- NOTE | 2022-10-04 18:00 | NUR ---
SPN SHIFT SUMMARY ASSUMED CARE OF PATIENT AT 0645 WITH PRECEPTOR JAMIL PETERSON. SHIFT ASSESSMENT DONE THIS AM, Pt WAS NOT ORIENTED TO PLACE OR SITUATION, Pt WAS ORIENTED TO SELF AND DAY. SKIN WAS WARM DRY AND INTACT, PEDIAL PULSE WAS STRONG, LUNGS WERE CLEAR BILATERALLY. Pt WAS ALERT FOR MEALS STAFF ASSIST TO SIDE OF BED TO EAT. Pt HAS SLEPT THE MAJORITY OF THIS SHIFT. Pt HAS DECLINED TO GET UP AND AMBULATE 2X THIS SHIFT. Pt REPORTED PAIN IN SHOULDER AT 7/10 AT 1255 WAS GIVEN PRN PAIN MEDICATION. Pt UP TO TOILET WITH STAFF ASSISTANCE AT 1645, Pt WAS RUNNING A FEVER AND TYLEOL WAS ORDERED FROM . 500MG TYLENOL WAS GIVEN AT 1700. Pt IS RESTING CALL LIGHT IN REACH.
[2022-10-05 05:29] LABS: Hematocrit 28.2 % (37.0-53.0); Mean Corpuscular HGB 27.5 pg (26.0-34.0); Mean Corpuscular HGB Conc 31.9 g/dL (31.5-36.5); Mean Corpuscular Volume 86 fL (80-100); Platelet Count 215 K/mm3 (150-400); RDW Coefficient Variation 22.3 % (11.7-14.2); RDW Standard Deviation 69.5 fL (35.1-46.3); Red Blood Cell Count 3.27 M/mm3 (4.30-5.90); White Blood Cell Count 7.52 K/mm3 (4.00-11.30)
[2022-10-05 06:11] LABS: Albumin, Blood 2.2 g/dL (3.4-5.0); Albumin/Globulin Ratio 0.5 (0.8-1.8); Bun/Creatinine Ratio 9.4 (12.0-20.0); Calcium, Blood 8.1 mg/dL (8.5-10.1); Creatinine, Blood 0.64 mg/dL (0.60-1.20); Globulin, Blood 4.7 g/dL (2.2-4.0); Potassium, Blood 3.7 mmol/L (3.5-5.5); Total Protein, Blood 6.9 g/dL (6.4-8.2)
--- NOTE | 2022-10-05 06:53 | NUR ---
END OF SHIFT NURSING REPORT - PM Admitted from [facility] for confusion and hepatic encephalopathy. He is AOX3 during shift, understands reason and purpose for admission. X1 Episodes of impulsive behavior and exiting bed without calling for assistance triggering bed alarm. Pleasant mood during shift, and is looking forward to [place] home on Saturday. Thought 10/04/22 was next Saturday to attend daughters birthday. He was re-oriented on date. Medicated x2 with PRN Oxy for 8/10 pain to right-shoulder.
[2022-10-05 11:30] LABS: Source, Urine Clean Catch
[2022-10-05 11:33] LABS: Appearance, Urine Clear (Clear); Bilirubin, Urine Neg (Neg); Blood, Urine Neg (Neg); Color, Urine Yellow (P-Yellow); Glucose Qualitative, Urine Neg (Neg); Ketones, Urine Neg (Neg); Leukocyte Esterase, Urine 1+ (Neg); Nitrite, Urine Neg (Neg); Protein, Urine Neg (Neg); Specific Gravity, Urine 1.015 (1.003-1.022); Urobilinogen, Urine 1+ (Normal)
[2022-10-05 12:02] LABS: Bacteria Few /hpf; Mucus Light (0-Heavy); Red Blood Cells, Urine 0-2 /hpf (0-2); Squamous Epithelial Cells Few /hpf (Few)
--- NOTE | 2022-10-05 18:26 | NUR ---
SHIFT SUMMARY- PT WOKE THIS MORNING TO BE PLEASENT AND MORE ALERT T/O THE ENTIRE SHIFT WHEN COMPARED TO THE TWO PREVIOUS DAYS. PT HAS HAD NO ACUTE CHANGE T/O THE DAY, HE DID HAVE A SHOWER. PT SPOUSE CALLED TO CHECK IN ON HIM TODAY, SHE STATED THE PT IS GOING TO DC TO HIS MOTHERS HOUSE HOWEVER SHE IS GOING TO BE THE ONE TO PICK HIM UP TO TAKE HIM THERE. SHE REQUESTED HER NUMBER BE REMOVED FROM THE BOARD YESTERDAY BECAUSE THE PT WAS CALLING HER CONSTANTLY AND BEING VERY REPETITIVE AND NONSENSICAL. HER NUMBER IS IN THE FRONT OF THE CHART. BLOOD CULTURES COMPLETED TODAY, 2V CHEST XR PT HAS BEEN HAVING FEVERS. STARTED ON PO LEVAQUIN. UA COLLECTED AND SENT FOR CULTURE. PT IS CURRENTLY IN BED, CALL LIGHT IN REACH, HE HAS BEEN INDEPENDENT IN THE [place] TODAY BUT MAY REQUIRE ASSISTANCE T/O THE NIGHT IF HE BECOMES MORE TIRED. WILL CTM AND PASS ON TO NIGHT RN IN BEDSIDE REPORT.
--- NOTE | 2022-10-06 06:00 | NUR ---
END OF SHIFT NURSING REPORT - PM Admitted from [facility] for confusion and hepatic encephalopathy. He is AOX4 during shift, understands reason and purpose for admission, and participating in discharge planing. Plan to dischard to his parents house, will transport. Chronic pain to right shoulder medicated with PRN oxy as ordered, patient states relief. He slept through the night and used call light to use bathroom. He is ambulating independently, with steady gait.
--- NOTE | 2022-10-06 18:10 | NUR ---
SUMMARY- PT IS INDEPENDANT, AMBULATED IN [place] [address] MULT TIMES TODAY, INTERACTING APPROPRIATE WITH STAFF. CHRONIC SHOULDER PAIN IS PARTIALLY RELEIVED, NEVER BELOW A 5/10. CALLED FOR ADDITIONAL DOSE OF OXY TODAY WITH RIELEIF OF 5/10. PT TOLERATING FOOD AND FLUIDS. MONITORING FOR ELEVATED TEMPS FOR 24HRS AND LIKELY DC TOMORROW IF ALL IS WELL. PT CIWAA BELOW 2-3 THIS SHIFT
[2022-10-07 05:43] LABS: BASOPHILS ABSOLUTE AUTO 0.16 K/mm3 (0.00-0.23); BASOPHILS PERCENT AUTO 2 % (0-2); EOSINOPHILS ABSOLUTE AUTO 0.26 K/mm3 (0.00-0.68); EOSINOPHILS PERCENT AUTO 3 % (0-6); Hematocrit 27.4 % (37.0-53.0); Hemoglobin 8.6 g/dL (13.5-17.5); IMMATURE GRAN ABSOLUTE AUTO 0.05 K/mm3 (0.00-0.10); IMMATURE GRAN PERCENT AUTO 1 % (0-1); LYMPHOCYTES ABSOLUTE AUTO 2.09 K/mm3 (0.84-5.20); LYMPHOCYTES PERCENT AUTO 22 % (21-46); MONOCYTES ABSOLUTE AUTO 1.34 K/mm3 (0.16-1.47); MONOCYTES PERCENT AUTO 14 % (4-13); Mean Corpuscular HGB 27.2 pg (26.0-34.0); Mean Corpuscular HGB Conc 31.4 g/dL (31.5-36.5); Mean Corpuscular Volume 87 fL (80-100); Mean Platelet Volume 10.7 fL (9.1-12.4); NEUTROPHILS ABSOLUTE AUTO 5.75 K/mm3 (1.96-9.15); NEUTROPHILS PERCENT AUTO 60 % (41-73); Platelet Count 200 K/mm3 (150-400); RDW Standard Deviation 69.5 fL (35.1-46.3); Red Blood Cell Count 3.16 M/mm3 (4.30-5.90); White Blood Cell Count 9.65 K/mm3 (4.00-11.30)
--- NOTE | 2022-10-07 06:00 | NUR ---
END OF SHIFT NURSING REPORT - PM Admitted from [facility] for confusion and hepatic encephalopathy. He is AOX4 during shift, understands reason and purpose for admission, and participating in discharge planing. Plan to dischard to his parents house, Clary Gibbs) cane in and spent the night. She will be transporting patient to his parentys house upon discharge. Chronic pain to right shoulder medicated with PRN oxy x2 as ordered, patient states relief. Had a fever of 100.7 and medicated with tylernol, recheach in the Am is 98.7. He is ambulating independently, with steady gait. Refused PM ammonia and states hed x-10 episodes of bowel movements.
[2022-10-07 06:16] LABS: Albumin, Blood 2.1 g/dL (3.4-5.0); Albumin/Globulin Ratio 0.4 (0.8-1.8); Bilirubin, Total 1.2 mg/dL (0.1-1.0); Bun/Creatinine Ratio 11.7 (12.0-20.0); Calcium, Blood 8.1 mg/dL (8.5-10.1); Creatinine, Blood 0.68 mg/dL (0.60-1.20); Globulin, Blood 4.8 g/dL (2.2-4.0); Potassium, Blood 3.8 mmol/L (3.5-5.5); Total Protein, Blood 6.9 g/dL (6.4-8.2)
[2022-10-07] MEDS ORDERED: FERSU300 PO (11:50)
[2022-10-07] MEDS ORDERED: ASCO500 PO (11:50)
[2022-10-07] MEDS ORDERED: GUAI600T33 PO (11:51)
[2022-10-07] MEDS ORDERED: LEVO750 PO (11:52)
[2022-10-07] MEDS ORDERED: VISBIOME 112.51 EACH PO (11:52)
[2022-10-07] MEDS ORDERED: METO25ER PO (11:52)
[2022-10-07] MEDS ORDERED: OXAYDO5 M5 PO (11:53)
--- NOTE | 2022-10-07 13:11 | NUR ---
PT DISCHARGED AT 1230 WITH DC INSTRUCTIONS. RX FAXED TO [facility] FOR OXYCODONE. [facility] DRIVING PT HOME TO PARENTS IN [facility]. SENT WITH BELONGINGS. WHEELCHAIR OUTSIDE TO PRIVATE CAR.
== END 2022-10-07 12:31 | disposition home health service (06) | DRG 441 ==
LOC: ER 12:22 → PCU 14:48 → MEDS 14:48 → ICUE 14:48 → PCU 15:47 → ICUE 18:10 → PCU 09-30 17:23 → MEDS 10-02 15:53
PROVIDERS: Internal Medicine; Internal Medicine Gastroenterology; Nurse Practitioner Acute Care; Student in an Organized Health Care Education/Training Program; ADMIT Hospitalist
PROC: 0T9B70Z Drainage of Bladder with Drainage Device, Via Natural or Artificial Opening (ICD-10-PCS; 2022-09-25)
PROC: 30233N1 Transfusion of Nonautologous Red Blood Cells into Peripheral Vein, Percutaneous Approach (ICD-10-PCS; principal; 2022-09-26)
PROC: HZ2ZZZZ Detoxification Services for Substance Abuse Treatment (ICD-10-PCS; 2022-09-26)
DX: K76.82 Hepatic encephalopathy (principal); J69.0 Pneumonitis due to inhalation of food and vomit; K22.6 Gastro-esophageal laceration-hemorrhage syndrome; F10.231 Alcohol dependence with withdrawal delirium; N39.0 Urinary tract infection, site not specified; D62 Acute posthemorrhagic anemia; K70.30 Alcoholic cirrhosis of liver without ascites; F17.210 Nicotine dependence, cigarettes, uncomplicated; E87.6 Hypokalemia; K70.10 Alcoholic hepatitis without ascites; M25.511 Pain in right shoulder; D69.59 Other secondary thrombocytopenia; E66.3 Overweight; B19.20 Unspecified viral hepatitis C without hepatic coma; Z68.33 Body mass index [BMI] 33.0-33.9, adult; Z88.8 Allergy status to other drugs, medicaments and biological substances; Z79.899 Other long term (current) drug therapy
CPT/HCPCS: 36415; 36430; 71046; 73030; 73221; 76700; 80048; 80053; 80069; 80076; 81001; 82140; 82272; 82607; 82728; 82746; 83540; 83550; 83735; 84100; 85014; 85018; 85025; 85027; 85610; 85730; 86317; 86704; 86708; 86803; 86850; 86900; 86901; 86923; 87077; 87086; 87147; 87186; 87340; 93005; 93010; 94640; 94664; 94760; 96365; 96366; 96375; 97116; 97162; 97166; 97530; 97535; 99285-25; A9270; C9113; G0480; J0696; J2060; J2354; J2405; J2916; J3010; J3411; J7042; J7050; P9016

== ENCOUNTER 2023-09-03 16:38 | Emergency (ER) | payer OTHER ==
[~2023-09-03] VITALS: Ht 172.7 cm; Wt 86.2 kg
[~2023-09-03 16:38] MED LIST: ALDACTONE100 MG PO; ASCO500 PO; Ativan1 MG PO; B-1100 M2 PO; BUSP5 PO; CITALOPRAM HBR10 MG PO; ENULOSE10 GM/156 PO; FERSU300 PO; FOLI1 PO; FURO20 PO; GABA300 PO; GUAI600T33 PO; HYDROXYZINE PAM25 MG PO; LEVO750 PO; MAGNESIUM OXID500 MG PO; MELATONIN5 M1 PO; METO25ER PO; MULTI-VITAMIN1 EAC2 PO; Midodrine HCl2.5 MG PO; NICO21TP TOP; NICORETTE4 M1 BC; OXAYDO5 M5 PO; OXYC10TA19 PO; PANT40 PO; VISBIOME 112.51 EACH PO; Ventolin/Prove6.7 GM INH
[2023-09-03 18:10] LABS: BASOPHILS ABSOLUTE AUTO 0.05 K/mm3 (0.00-0.23); BASOPHILS PERCENT AUTO 1 % (0-2); EOSINOPHILS ABSOLUTE AUTO 0.07 K/mm3 (0.00-0.68); EOSINOPHILS PERCENT AUTO 1 % (0-6); Hematocrit 24.8 % (37.0-53.0); Hemoglobin 7.5 g/dL (13.5-17.5); IMMATURE GRAN ABSOLUTE AUTO 0.01 K/mm3 (0.00-0.10); IMMATURE GRAN PERCENT AUTO 0 % (0-1); LYMPHOCYTES ABSOLUTE AUTO 1.56 K/mm3 (0.84-5.20); LYMPHOCYTES PERCENT AUTO 29 % (21-46); MONOCYTES ABSOLUTE AUTO 0.49 K/mm3 (0.16-1.47); MONOCYTES PERCENT AUTO 9 % (4-13); Mean Corpuscular HGB 23.6 pg (26.0-34.0); Mean Corpuscular HGB Conc 30.2 g/dL (31.5-36.5); Mean Corpuscular Volume 78 fL (80-100); NEUTROPHILS ABSOLUTE AUTO 3.13 K/mm3 (1.96-9.15); NEUTROPHILS PERCENT AUTO 59 % (41-73); Platelet Count 95 K/mm3 (150-400); RDW Coefficient Variation 27.9 % (11.7-14.2); RDW Standard Deviation 78.7 fL (35.1-46.3); Red Blood Cell Count 3.18 M/mm3 (4.30-5.90); White Blood Cell Count 5.31 K/mm3 (4.00-11.30)
[2023-09-03 18:27] LABS: Albumin, Blood 1.4 g/dL (3.4-5.0); Albumin/Globulin Ratio 0.3 (0.8-1.8); Bilirubin, Direct 1.4 mg/dL (0.0-0.3); Bilirubin, Indirect 0.8 mg/dL (0.1-0.7); Bilirubin, Total 2.2 mg/dL (0.1-1.0); Bun/Creatinine Ratio 6.5 (12.0-20.0); Calcium, Blood 7.4 mg/dL (8.5-10.1); Creatinine, Blood 0.77 mg/dL (0.60-1.20); Globulin, Blood 5.4 g/dL (2.2-4.0); Potassium, Blood 4.4 mmol/L (3.5-5.5); Total Protein, Blood 6.8 g/dL (6.4-8.2)
[2023-09-03 19:47] LABS: International Normalized Ratio 1.85; Prothrombin Time Results 18.8 Sec (9.7-11.5)
[2023-09-03 20:56] LABS: Automated BF RBC Count 0.006 M/mm3 (0-0); Automated BF WBC Count 0.146 K/mm3 (0-999); Body Fluid WBC Count 146 /mm3 (0-999); RBC Count, Body Fluid 6000 /mm3 (0-0)
[2023-09-03 21:01] LABS: Appearance, Body Fluid Hazy (Clear); Color, Body Fluid Yellow (None-Yellow)
[2023-09-03 21:14] LABS: Glucose, Body Fluid 102 mg/dL; Lactate Dehydrogenase, Body Fl 78 U/L; Protein, Body Fluid 1.5 g/dL
[2023-09-03 22:30] VITALS: BP 102/79
[2023-09-03 22:38] LABS: Total Cell Count, Body Fluid 100
[2023-09-04] MEDS ORDERED: FURO20 PO (00:56)
== END 2023-09-04 00:45 | disposition home or self-care (01) ==
LOC: ER 16:38
PROVIDERS: Physician Assistant; Student in an Organized Health Care Education/Training Program
DX: K70.31 Alcoholic cirrhosis of liver with ascites (principal); E80.6 Other disorders of bilirubin metabolism; E72.20 Disorder of urea cycle metabolism, unspecified; K76.82 Hepatic encephalopathy; K70.10 Alcoholic hepatitis without ascites; B19.20 Unspecified viral hepatitis C without hepatic coma; Z88.8 Allergy status to other drugs, medicaments and biological substances; Z79.899 Other long term (current) drug therapy
CPT/HCPCS: 49082; 80048; 80076; 82140; 82945; 83615; 84157; 85025; 85610; 87070; 87205; 89051; 93005; 93010; 96374-59; 96375-59; 99284-25; A9270; J1170; J1940

== ENCOUNTER 2023-09-05 15:36 | Emergency (ER) | payer OTHER ==
[~2023-09-05] VITALS: Ht 165.1 cm; Wt 88.5 kg
[2023-09-05 16:56] VITALS: BP 125/100
== END 2023-09-05 18:26 | disposition home or self-care (01) ==
LOC: ER 15:36
DX: S00.83XA Contusion of other part of head, initial encounter (principal); S63.501A Unspecified sprain of right wrist, initial encounter; K70.10 Alcoholic hepatitis without ascites; K74.60 Unspecified cirrhosis of liver; Z79.899 Other long term (current) drug therapy; Z88.8 Allergy status to other drugs, medicaments and biological substances; W01.198A Fall on same level from slipping, tripping and stumbling with subsequent striking against other object, initial encounter
CPT/HCPCS: 70450; 73100; 93005; 93010; 99284-25; A9270